=== PATIENT | female | born 1985 | race Caucasian/White ===

== ENCOUNTER → 2020-03-09 14:19 | Outpatient (BNVA) | payer SELFPAY | PROVIDERS: Family Provider General Practice; Visit Provider Obstetrics & Gynecology | DX: Z12.4 Encounter for screening for malignant neoplasm of cervix (principal) | CPT/HCPCS: 88175 ==

== ENCOUNTER → 2023-07-10 14:05 | Outpatient (BNVA) | payer OTHER, SELFPAY | PROVIDERS: Family Provider General Practice; PCP Family Medicine; Visit Provider Family Medicine | DX: N62 Hypertrophy of breast (principal); M54.9 Dorsalgia, unspecified; L73.2 Hidradenitis suppurativa; D64.9 Anemia, unspecified; Z00.00 Encounter for general adult medical examination without abnormal findings | CPT/HCPCS: 80053; 80061; 82728; 83036; 83540; 84443; 85025 ==

== ENCOUNTER 2023-07-24 09:16 | Outpatient (CLI) | payer OTHER, SELFPAY ==
--- NOTE | 2023-07-24 09:30 | MM_ITS ---
WS: [id number] SCREENING DIGITAL BREAST TOMOSYNTHESIS MAMMOGRAM WITH CAD HISTORY: breast cancer screening COMPARISON: None available. Bilateral CC and MLO with tomosynthesis and synthetic mammography submitted. Computer aided detection analyzed. Breast composition: There are scattered areas of fibroglandular density. Lobulated 9 mm mass in the l ateral RIGHT breast at a middle depth near 9-11 o'clock. There is an additional similar ovoid 8 mm ma ss in the upper outer quadrant of the LEFT breast at a middle depth near 10-11 o'clock. Favor these a re both lymph nodes but with no prior studies these need to be further evaluated. No suspicious calci fications. MM/[place] [id number] IMPRESSION: BI-RADS: 0-Incomplete: Need additional imaging evaluation FOLLOW UP: Need Additional Imaging Recommendation: Bilateral breast ultrasound, limited.
== END 2023-07-24 09:17 | disposition home or self-care (01) ==
LOC: RAD 09:16
PROVIDERS: PCP Family Medicine; Visit Provider Family Medicine
DX: Z12.31 Encounter for screening mammogram for malignant neoplasm of breast (principal); R92.323 Mammographic fibroglandular density, bilateral breasts; N63.11 Unspecified lump in the right breast, upper outer quadrant; N63.21 Unspecified lump in the left breast, upper outer quadrant
CPT/HCPCS: 77063; 77067

== ENCOUNTER → 2023-07-26 08:44 | Outpatient (BNVA) | payer OTHER, SELFPAY | PROVIDERS: PCP Family Medicine; Visit Provider Nurse Practitioner Women's Health | DX: N94.9 Unspecified condition associated with female genital organs and menstrual cycle (principal) | CPT/HCPCS: 87529 ==

== ENCOUNTER 2023-07-28 12:07 | Outpatient (CLI) | payer OTHER, SELFPAY ==
--- NOTE | 2023-07-28 12:10 | XR_ITS ---
WS: [id number] XR cervical spine 3V* [id number] REASON FOR EXAM: plastic surgery consult FINDINGS: Straightening of the normal lordosis of the cervical spine. No vertebral body abnormality. Normal odontoid. Mild to moderate narrowing of the C6-C7 disc space with mild endplate sclerosis and vertebral osteoph ytosis. No significant spondylolisthesis. XR/XR cervical spine 3V* [id number] IMPRESSION: Minimal to mild degenerative spondylosis of the cervical spine.
--- NOTE | 2023-07-28 12:10 | XR_ITS ---
WS: [id number] XR thoracic spine 3V* [id number] REASON FOR EXAM: plastic surgery consult FINDINGS: Minimal levoscoliosis of the thoracolumbar junction. No significant kyphosis. No significant vertebral body abnormality. Minimal narrowing of the disc space with mild vertebral osteophytosis. XR/XR thoracic spine 3V* [id number] IMPRESSION: Mild levoscoliosis of the thoracolumbar junction with mild degenerative spondyl osis of the thoracic spine.
== END 2023-07-28 12:08 | disposition home or self-care (01) ==
LOC: RAD 12:09
PROVIDERS: PCP Family Medicine; Visit Provider Family Medicine
DX: M48.02 Spinal stenosis, cervical region (principal); M50.30 Other cervical disc degeneration, unspecified cervical region; M25.78 Osteophyte, vertebrae; N62 Hypertrophy of breast
CPT/HCPCS: 72040; 72072

== ENCOUNTER → 2023-08-21 08:43 | Outpatient (BNVA) | payer OTHER, SELFPAY | PROVIDERS: PCP Family Medicine; Visit Provider Nurse Practitioner Women's Health | DX: N93.9 Abnormal uterine and vaginal bleeding, unspecified (principal); D25.9 Leiomyoma of uterus, unspecified | CPT/HCPCS: 76830 ==

== ENCOUNTER → 2023-08-30 08:43 | Outpatient (BNVA) | payer OTHER, SELFPAY | PROVIDERS: PCP Family Medicine; Visit Provider Nurse Practitioner Women's Health | DX: N92.0 Excessive and frequent menstruation with regular cycle (principal); D25.9 Leiomyoma of uterus, unspecified | CPT/HCPCS: 85025 ==

== ENCOUNTER → 2023-09-03 12:55 | Outpatient (BNVA) | payer OTHER, SELFPAY | PROVIDERS: PCP Family Medicine; Visit Provider Nurse Practitioner | DX: J02.9 Acute pharyngitis, unspecified (principal) | CPT/HCPCS: 87880 ==

== ENCOUNTER 2023-11-16 12:09 | Outpatient (CLI) | payer OTHER, SELFPAY ==
--- NOTE | 2023-11-16 12:20 | US_ITS ---
WS: [id number] ULTRASOUND BILATERAL BREAST HISTORY: abnormal screening mammo COMPARISON: 07/24/2023 TECHNIQUE: 2-D and Doppler. There are scattered areas of fibroglandular density. Ultrasound directed to the upper outer quadrants of each breast. The mammographic abnormality suggest ed these were probably benign lymph nodes. No prior studies for comparison therefore ultrasound was p erformed. No masses and no lymph node is identified. There are no areas of shadowing. There is an ech ogenic focus in the LEFT breast at 12:00 measuring 1.1 x 0.6 x 1.0 cm which may be a fat lobule US/US breast BI limited* [id number] IMPRESSION: BI-RADS: 2 - Benign. FOLLOW-UP: 1 Year Follow-up
== END 2023-11-16 12:10 | disposition home or self-care (01) ==
PROVIDERS: PCP Family Medicine; Visit Provider Family Medicine
DX: R92.8 Other abnormal and inconclusive findings on diagnostic imaging of breast (principal)
CPT/HCPCS: 76642

== ENCOUNTER 2024-01-30 10:01 | Observation (INO) | payer OTHER, SELFPAY ==
--- NOTE | 2024-01-22 10:59 | ANES.PREANE2 ---
Pre-Anesthetic Assessment Height/Weight: Height 5 ft 4 in Preop Diagnosis: Dysmenorrhea Operation Date: 01/30/24 13:40 Proposed Procedures p Total Vaginal Hysterectomy 58031, 53106, 77871, D25.9, N92.0, R10.2, N81.10, N39.46(Not Applicable) - Elías Garcia MD s Anterior Repair Anterior Colporrhaphy(Not Applicable) - Elías Garcia MD s Sling Single Incision Midurethral Sling(Not Applicable) - Elías Garcia MD Was Beta Noelle taken within 24 hours: N/A Was Clonidine taken within 24 hours: N/A Social No alcohol and No tobacco Exam alert, oriented x 3, clear to auscultation bilaterally and regular rate & rhythm Airway Submandibular: within normal limits Cervical ROM: within normal limits Mallampati: Class II Dentition: full Anesthetic Plan ASA status: 2 Anesthesia: General Other: No prior issues with anesthesia Plan to be n.p.o. midnight before surgery Patient denies any cardiac or pulmonary issues Patient does admit to having a cough for the last 4 days, educated her on being seen prior to surgery if symptoms get any worse. METs greater than 4 Plan for GETA Medications/Allergies Home Medications Medication Instructions Recorded Confirmed Last Taken Type cetirizine 10 mg capsule (Zyrtec) 10 mg PO BID allergies 07/20/22 01/22/24 01/22/24 History levonorgestrel 0.15 mg-ethinyl 1 tab PO DAILY #84 tabs 07/26/23 01/22/24 01/22/24 Rx estradiol 0.03 mg tablet (Levora-28) hydroxyzine HCl 10 mg tablet 10 mg PO DAILY #90 tabs 10/24/23 01/22/24 Unknown Rx oxybutynin chloride 5 mg tablet 5 mg PO DAILY #30 tabs 10/24/23 01/22/24 01/22/24 Rx fluticasone propionate 50 1 spray intranasal DAILY 01/22/24 01/22/24 01/22/24 History mcg/actuation nasal spray,suspension Allergies Allergy/AdvReac Type Severity Reaction Status Date / Time Penicillins Allergy Intermediate swelling--Can Verified 01/22/24 08:23 take Keflex [facility] Anesthesia Medical History Hives of unknown origin (~2021) managed with meds--- [facility] Surgical History (Updated 01/22/24 @ 10:33 by Dona Restrepo RN) S/P wisdom tooth extraction in 2014 S/P laparoscopy 2000 - done in [place], [place] for ruptured ovarian cyst per patient Family History Mother Diabetes Hypertension Thyroid disease Hyperlipidemia Father Hypertension Skin cancer Denies family history of Colon cancer Ovarian cancer Heart disease Breast cancer Uterine cancer Stroke Social History Smoking and tobacco/nicotine status: never used tobacco/nicotine Data Anesthesia Cardiac Studies: No Data to Display
[2024-01-30] VITALS (22 sets, daily range): BP systolic 99–142; BP diastolic 48–92; PULSE 80–112; RESP 12–26; TEMP 36.6–37.4; O2SAT 93–100; BMI 37.2
[2024-01-30 06:08] LABS: OR HCG Qualitative Urine Negative (Negative)
--- NOTE | 2024-01-30 06:17 | P.ANESUD_ITS ---
Pre-Anesthetic Update Pre-Anesthetic Assessment: Date of Surgery/Procedure: 01/30/24 Preop Fransisca gnosis: Abnormal uterine bleeding, uterine fibroid, cystocele, urinary incontinence Proposed Procedure: Operation Date: 01/30/24 07:00 Proposed Procedures p Total Vaginal Hysterectomy 12030, 30468, 44348, D25.9, N92.0, R10.2, N81.10, N39.46(Not Applicable) - Elías Garcia MD s Anterior Repair Anterior Colporrhaphy(Not Applicable) - Elías Garcia MD s Sling Single Incision Midurethral Sling(Not Applicable) - Elías Garcia MD Changes from Pre-Anesthetic Assessment: Patient states that she is feeling well today, coughing has improved. NPO since yesterday Plan for general anesthesia Last Intake: Intake Last Liquid Date 01/29/24 Last Liquid Time 22:00 Last Solid Date 01/29/24 Last Solid Time 19:00 Vitals: Temperature 99.3 F 01/30/24 06:02 Temperature Source Temporal Artery S can 01/30/24 06:02 Pulse Rate 101 H 01/30/24 06:02 Respiratory Rate 16 01/30/24 06:02 Blood Pressure 142/91 01/30/24 06:02 Blood Pressure Niya n 108 01/30/24 06:02 Pulse Oximetry 96 01/30/24 06:02 Oxygen Delivery Me thod Room Air 01/30/24 06:02 Cardiac Studies: No Data to Display
[2024-01-30] MEDS: sodium chloride 0.9% 1,000 ML 30 ML IV (06:43)
[2024-01-30] MEDS: VANCOMYCIN ADD-Vantage 1,000 MG in 0.9% NaCl ADD-Vantage 250 ML 250 MG IV (06:44)
--- NOTE | 2024-01-30 06:53 | W.PM.OPSUD ---
Surgery/Procedure H&P Update DATE OF PROCEDURE: January 30, 2024 DATE H&P PERFORMED: 01/22/24 H&P UPDATE INFORMATION: I have reviewed H&P completed within last 30 days, I have examined patient prior to procedure and No changes to prior documentation PREOP DIAGNOSIS: Abnormal uterine bleeding, uterine fibroid, cystocele, urinary incontinence PLANNED PROCEDURE: Operation Date: 01/30/24 07:00 Proposed Procedures p Total Vaginal Hysterectomy 11561, 84666, 88766, D25.9, N92.0, R10.2, N81.10, N39.46(Not Applicable) - Elías Garcia MD s Anterior Repair Anterior Colporrhaphy(Not Applicable) - Elías Garcia MD s Sling Single Incision Midurethral Sling(Not Applicable) - Elías Garcia MD
[2024-01-30 06:57] LABS: Basophils # 0.1 10^3/uL (0.0-0.1); Basophils % 0.6 %; Eosinophils # 0.3 10^3/uL (0.0-0.8); Eosinophils % 3.4 %; Hematocrit 39.2 % (36-47); Lymphocytes # 2.7 10^3/uL (0.8-4.8); Lymphocytes % 31.1 %; Mean Corpuscular HGB Conc 32.4 g/dL (30-55); Mean Corpuscular Hemoglobin 26.1 pg (27-33); Mean Corpuscular Volume 80.5 fl (85-98); Mean Platelet Volume 9.2 fL (7.4-10.4); Monocytes # 0.6 10^3/uL (0.2-0.9); Monocytes % 7.4 %; Neutrophils # 4.91 10^3/uL (1.8-7.7); Neutrophils % 56.8 %; Nucleated Red Blood Cells % 0 %; Platelet Count 260 10^3/cmm (157-399); Red Blood Count 4.87 10^6/uL (3.85-5.65); Red Cell Distribution Width 13.9 % (12.1-15.1); White Blood Count 8.64 10^3/uL (3.29-11.43)
[2024-01-30] MEDS: metroNIDAZOLE IV 500 MG/100 ML PREMIX 100 MG IV (07:00)
[2024-01-30 07:10] LABS: Alanine Aminotransferase 15 U/L (0-33); Albumin Level 3.9 g/dL (3.5-5.2); Alkaline Phosphatase 57 U/L (35-105); Aspartate Amino Transferase 16 U/L (0-32); Blood Urea Nitrogen 12 mg/dL (6-20); Calcium 9.2 mg/dL (8.5-10.5); Carbon Dioxide 21 mmol/L (22-29); Chloride 105 mmol/L (98-107); Creatinine Clr Calc Pharmacy 136.8295; Globulin 3.1 g/dL (1.3-4.6); Glomerular Filtration Rate 110.7 mL/min (90-130); Glucose 99 mg/dL (65-115); Osmolality Calculated 286 mOsm/kg (285-295); Sodium 138 mmol/L (136-145); Total Bilirubin 0.3 mg/dL (0.15-1.2)
[2024-01-30] MEDS: lidocaine-epi 2% PF 1:200,000 20 mL SDV INJECTION (07:46)
--- NOTE | 2024-01-30 09:29 | P.BOP_ITS ---
Date of Procedure: 01/30/24 Surgeon: Elías Garcia MD Fiberglass Fabricator(s): Procedure(s) performed: Total vaginal hysterectomy, anterior colporrhaphy augmented with allograft, mid urethral sling Findings of the procedure(s): Enlarged irregular fibroid uterus, cystocele Estimated blood loss: 250 Specimen(s) removed: Uterus Post-operative diagnosis: Status post TVH, anterior colporrhaphy, mid urethral sling
--- NOTE | 2024-01-30 09:31 | P.OP_ITS ---
Operative Report Date of procedure: January 30, 2024 Pre-op diagnosis: Abnormal uterine bleeding Pelvic pain Fibroid uterus Cystocele Mixed urinary incontinence Post-op diagnosis: same Post-op findings: Enlarged irregular shaped uterus Procedure done: Total vaginal hysterectomy Anterior colporrhaphy augmented with allograft Mid urethral sling Cystoscopy Implants: Coloplast Altis sling Coloplast dermis allograft Specimens removed/disposition: Uterus Pathology: Fibroid uterus Surgeon: Elías Garcia MD Estimated blood loss (mL): 250 IV fluids (mL): 1,000 Urine output (mL): 200 Complications: None Findings: Enlarged irregular fibroid uterus Procedure: After informed consent and risks, benefits, indications and alternatives reviewed with the patient was taken to the operating room. The patient was placed in dorsal lithotomy position prepped, and draped in the usual sterile fashion. The pre-procedure timeout verifying the correct patient, procedure, site and side, could not requirements was performed and acknowledge by the OR team. A Patterson catheter was placed. A Bookwalter vaginal retractor was placed into the vagina in usual manner visualize the cervix. Cervix was grasped with a single tooth tenaculum and circumferentially infiltrated with 2% lidocaine with epinephrine. Then cervix was circumferentially incised with bovie and the bladder was dissected off the pubovesical cervical fascia anteriorly with a sponge stick and Metzenbaum scissors. The anterior peritoneal reflection was identified and the anterior cul-de-sac was entered sharply with Metzenbaum scissors. The same procedure was performed posteriorly and a posterior colpotomy was made through the posterior cul-de-sac space without difficulty and the posterior blade of the Bookwalter vaginal retractor was advanced posteriorly into the cul-de-sac. At this time, the left and right uterosacral ligaments were isolated and ligated with 0 Vicryl. The LigaSure device was placed over the uterosacral ligaments on either side and was then used in a serial fashion up through the cardinal ligaments bilaterally cross-clamped, cut, and sealed with the LigaSure device. Finally, the uterine arteries were cross-clamped, cut, sealed and ligated with the LigaSure device. Hemostasis was assured. The broad ligaments were then serially clamped, sealed and cut with the LigaSure device on both sides. Excellent hemostasis was visualized. Both cornua were clamped, sealed and cut with the LigaSure device. Then the pedicles were then suture ligated with excellent hemostasis. The uterus was excised and submitted for pathologic evaluation. No other abnormalities were noted in the pelvic cavity. The peritoneum was then closed in a pursestring fashion with 0 Vicryl suture. The vaginal cuff angles were closed with [id number] #0 Vicryl suture on both sides and transfixed with the ipsilateral cardinal and uterosacral ligaments. The remainder of the vaginal cuff was closed with #0 Vicryl in a running locked fashion. Then proceeded to perform the mid urethral sling and anterior colporrhaphy. The anterior vaginal mucosa beneath the midurethra was infiltrated with 2% lidocaine with epinephrine. A vertical midline incision was made beneath the midurethra, nearly 1.5 cm length. Careful submucosal dissection was performed bilaterally up to the interior portion of the inferior pubic ramus. The insertion of adductor longus tendon on the patient?s pubic ramus was identified as reference land paulie. Palpated the notch along the internal edge of isc hiopubic ramus where the adductor longus tendon and the inferior pubic ramus meet. The Altis single incision sling (SIS) was selected. Then the needle of the SIS inserted aiming at the location of this notch. One of the integrated self- fixating tips place onto the needle by sliding it over the end of the needle. The needle/sling assembly was inserted toward the location of identified reference notch making sure that the flat of the handle is perpendicular to the desired path. The needle was tracked along the posterior surface of the ischiopubic ramus until the midline paulie on the mesh is approximately at the midline position under the urethra. The needle was removed and the same was repeated on the contralateral side until the appropriate sling tension under the urethra was achieved ensuring that the mesh lays flat. The needle was removed and vaginal incision was closed in a running interlocking fashion with 2-0 Vicryl. Then the vaginal mucosa was then injected in the midline with 2% lidocaine with epinephrine. The vaginal mucosa was scored in the midline with the Bovie approximately 1 cm medial to the urethral meatus to 1 cm distal to the vaginal cuff. This vaginal mucosa was then undermined and then incised in the midline with the Metzenbaum scissors. The lateral aspects of the vaginal mucosa were then grasped with the Allis clamps and the vaginal mucosa was then dissected off the underlying fascia with the Metzenbaum scissors. Again, there was noted to be quite a bit of oozing at the incision, which was controlled with cautery. After adequate dissection was performed, bilaterally. A coloplast Dermis allograft was modified at time of application to fit spacea, 3 x 3 cm piece. The Coloplast allograft was placed in front of cystocele ready to be implanted facing the vagina mucosa. Suture is placed at distal end of graft and placed towards vaginal cuff. Final suture is placed on proximal portion of the graft to complete the placement overlying the bladder. Then Interrupted vertical mattress sutures of 0 Vicryl were used to elevate the cystocele superiorly. Bludigo was given IV. The excessive vaginal mucosa was then trimmed with the Metzenbaum scissors and the vaginal mucosa was then reapproximated in the running interlocking fashion with 2-0 Vicryl. At this time, instruments were removed from the vagina at hemostasis assured. Then the Patterson catheter was removed and cystoscope was inserted. The bladder was filled with sterile water. Complete evaluation of the bladder mucosa was performed noting no lacerations, dimpling, tears, bleeding of the mucosa or muscular layers. Both ureteral orifices were identified. Prompt excretion of blue urine from both ureteral orifices was noted. Cystoscope was withdrawn. Patterson catheter was then placed yielding clear blue urine. A vaginal packing with Premarin cream was placed and the patient was taken out of dorsal lithotomy position and awakened from the general anesthesia. The patient tolerated the pr ocedure well and was taken to the PACU recovery room in a stable condition. Sponge, lap, needle and instruments counts were correct x3.
[2024-01-30] MEDS: fentaNYL 50 mcg/mL INJ 2mL IVP (10:06)
--- NOTE | 2024-01-30 10:09 | SUR.PHASEI ---
09:35 RECEIVED PT FROM OR STAFF. SPONTANEOUS RESPIRATIONS. OPENS EYES TO VERBAL. 09:40 ORAL AIRWAY DC'ED. AIRWAY PATENT .VENTILATING WELL. JACOBSON PATENT. NSR ON MONITOR. NO ACTIVE BLEEDING NOTED. 10:08 MEDICATED FOR MILD LOWER ABDOMEN PAIN. DENIES NAUSEA. A+O X3. 10:15 ICE CHIPS GIVEN. RELIEF OF PAIN.
--- NOTE | 2024-01-30 10:33 | ANE.PACU2 ---
Inpatient post-anesthesia follow up: Airway intact: Yes Vital signs: Temperature 98.3 F Pulse Rate 92 Respiratory Rate 16 Blood Pressure 120/73 Pulse Oximetry 98 Oxygen Delivery Me thod Room Air Oxygen Flow Rate 2 Fraction of Inspir ed Oxygen Hydration adequate: Yes Nausea and vomiting: No Pain level: 2 Mental status: Baseline
[2024-01-30] MEDS: dextrose 5%-lactated ringers 1,000 ML 125 ML IV (12:28)
[2024-01-30] MEDS: ketorolac 30 mg/mL INJ IVP ×3 (12:28→23:53)
[2024-01-30] MEDS: HYDROcodone-acetaminophen 5-325 mg Tablet PO (14:48)
[2024-01-30] MEDS: docusate sodium 100 mg Capsule PO (17:43)
[2024-01-30] MEDS: cetirizine 10 mg Tablet PO (17:43)
[2024-01-30] MEDS: simethicone 80 mg Chew PO (20:40)
[2024-01-31] MEDS: sodium chloride 0.9% 500 ML IV (01:11)
[2024-01-31] MEDS: dextrose 5%-lactated ringers 1,000 ML 125 ML IV (01:50)
[2024-01-31 04:00] VITALS: BP 118/73; PULSE 80; RESP 18; TEMP 36.7; O2SAT 95
--- NOTE | 2024-01-31 04:42 | PC.NURSE ---
Vaginal packing removed. Patient tolerated the procedure. Scant bleeding noted.
[2024-01-31 04:47] LABS: Hematocrit 33.8 % (36-47); Mean Corpuscular HGB Conc 32.2 g/dL (30-55); Mean Corpuscular Hemoglobin 26.3 pg (27-33); Mean Corpuscular Volume 81.4 fl (85-98); Mean Platelet Volume 9.1 fL (7.4-10.4); Platelet Count 225 10^3/cmm (157-399); Red Blood Count 4.15 10^6/uL (3.85-5.65); Red Cell Distribution Width 13.9 % (12.1-15.1); White Blood Count 12.18 10^3/uL (3.29-11.43)
[2024-01-31] MEDS: ketorolac 30 mg/mL INJ IVP (05:23)
[2024-01-31] MEDS: cetirizine 10 mg Tablet PO (08:49)
[2024-01-31] MEDS: docusate sodium 100 mg Capsule PO (08:49)
[2024-01-31 10:00] VITALS: BP 106/66; PULSE 80; RESP 18; TEMP 36.8; O2SAT 96
--- NOTE | 2024-01-31 10:06 | PC.NURSE ---
PVR 92
[2024-01-31] MEDS: ibuprofen 800 mg tablet PO (12:49)
--- NOTE | 2024-01-31 14:01 | PM.OBGYDC ---
Discharge Providers ECHO VASCULAR TECH Date of Admission: 01/30/24 10:01 Date of Discharge: 01/31/24 Attending Provider at Admission: Elías Garcia MD Attending Provider at Discharge: Elías Garcia MD Primary Care Provider: Joanne Alvarez MD Reason for Visit Reason for Visit: R10.2 Hospital Course Hospital Course Mrs. Schneider 38-year-old female with history of abnormal uterine bleeding unresponsive to medical management, fibroid uterus, cystocele, and urinary incontinence. She was admitted for planned total vaginal hysterectomy with anterior colporrhaphy and mid urethral sling. The procedures were performed without complication. Overnight observation was uneventful. Tolerating diet well. Ambulating without difficulty. Pain well under control. She is afebrile hemodynamically stable postoperative day 1. She was counseled regarding pelvic rest for 6 weeks (no sex, no tampons, no vaginal douches). Return to the emergency room if any fever, increased bleeding or pain. Will also advised against heavy lifting with the limitation of 10 pounds. Physical Exam Narrative: GA: Alert and oriented ?3. HEENT: WNL. Heart: Regular rate and rhythm. Lungs: Clear to auscultation bilaterally. Abdomen: Bowel sounds present, nontender. PHYSICIAN RECRUITER: spotting bleeding. Extremities: No edema, no cyanosis, no calves pain. Urinary Catheter Management: Patterson: Cath Placed During This Visit: yes, but has since been removed by the nurse Reason for Continuing Indwelling Catheter: Decision to DC Catheter Urinary Catheter Date of Insertion: 01/30/24 Urinary Catheter Time of Insertion: 07:30 Date Urinary Catheter Removed: 01/31/24 Time Urinary Catheter Discontinued: 04:42 History History History 3 Term 3 0 Miscarriages/Ectopic 0 Living Children 3 Discharge Data Studies Completed and Pending Pending at discharge Category Date Time Status Pathology: Surgical [PTH] Routine Pth 01/30/24 08:23 Received Laboratory Results WBC 12.18 10^3/uL (3.29-11.43) H 01/31/24 04:40 RBC 4.15 10^6/uL (3.85-5.65) 01/31/24 04:40 Hgb 10.90 g/dL (11.27-16.99) L 01/31/24 04:40 Hct 33.8 % (36-47) L 01/31/24 04:40 MCV 81.4 fl (85-98) L 01/31/24 04:40 MCH 26.3 pg (27-33) L 01/31/24 04:40 MCHC 32.2 g/dL (30-55) 01/31/24 04:40 RDW 13.9 % (12.1-15.1) 01/31/24 04:40 Plt Count 225 10^3/cmm (157-399) 01/31/24 04:40 MPV 9.1 fL (7.4-10.4) 01/31/24 04:40 Neut % (Auto) 56.8 % 01/30/24 06:30 Lymph % (Auto) 31.1 % 01/30/24 06:30 [place] % (Auto) 7.4 % 01/30/24 06:30 Eos % (Auto) 3.4 % 01/30/24 06:30 Baso % (Auto) 0.6 % 01/30/24 06:30 Neut # (Auto) 4.91 10^3/uL (1.8-7.7) 01/30/24 06:30 Lymph # (Auto) 2.7 10^3/uL (0.8-4.8) 01/30/24 06:30 [place] # (Auto) 0.6 10^3/uL (0.2-0.9) 01/30/24 06:30 Eos # (Auto) 0.3 10^3/uL (0.0-0.8) 01/30/24 06:30 Baso # (Auto) 0.1 10^3/uL (0.0-0.1) 01/30/24 06:30 Nucleated RBC % (auto) 0 % 01/30/24 06:30 Nucleated RBCs # 0.0 /100WBC 01/30/24 06:30 Sodium 138 mmol/L (136-145) 01/30/24 06:30 Potassium 4.0 mmol/L (3.5-5.1) 01/30/24 06:30 Chloride 105 mmol/L (98-107) 01/30/24 06:30 Carbon Dioxide 21 mmol/L (22-29) L 01/30/24 06:30 Anion Gap 16.0 (5-19) 01/30/24 06:30 BUN 12 mg/dL (6-20) 01/30/24 06:30 Creatinine 0.6 mg/dL (0.5-0.9) 01/30/24 06:30 GFR Calculation 110.7 mL/min (90-130) 01/30/24 06:30 Glucose 99 mg/dL (65-115) 01/30/24 06:30 Calculated Osmolality 286 mOsm/kg (285-295) 01/30/24 06:30 Calcium 9.2 mg/dL (8.5-10.5) 01/30/24 06:30 Total Bilirubin 0.3 mg/dL (0.15-1.2) 01/30/24 06:30 AST 16 U/L (0-32) 01/30/24 06:30 ALT 15 U/L (0-33) 01/30/24 06:30 Alkaline Phosphatase 57 U/L (35-105) 01/30/24 06:30 Total Protein 7.0 g/dL (6.6-8.7) 01/30/24 06:30 Albumin 3.9 g/dL (3.5-5.2) 01/30/24 06:30 Globulin 3.1 g/dL (1.3-4.6) 01/30/24 06:30 Urine HCG, Qual Negative (Negative) 01/30/24 05:54 Blood Type A Positive 01/30/24 06:30 Rho(D) Type Rh positive 01/30/24 06:30 Antibody Screen Negative 01/30/24 06:30 Vitals Last Vital Signs Temp 98.2 F 01/31/24 10:00 Pulse 80 01/31/24 10:00 Resp 18 01/31/24 10:00 BP 106/66 01/31/24 10:00 Pulse Ox 96 01/31/24 10:00 O2 Del Method Room Air 01/31/24 10:00 O2 Flow Rate 2 01/30/24 10:25 Results Labs OB ([facility]): Blood Type A Positive 01/30/24 Antibody Screen Negative 01/30/24 Hct 33.8 % (36-47) L 01/31/24 Hgb 10.90 g/dL (11.27-16.99) L 01/31/24 Rho(D) Type Rh positive 01/30/24 Plt Count 225 10^3/cmm (157-399) 01/31/24 TSH 0.80 uIU/mL (0.27-4.20) 07/10/23 Hemoglobin A1c 5.0 % (4.0-6.0) 07/10/23 Discharge Plan Discharge Patient Disposition: Home Condition: Stable Prescriptions: New hydrocodone-acetaminophen 5-325 mg tablet 1 tab PO Q4H PRN (Reason: pain) Qty: 30 0RF acetaminophen 325 mg capsule 325 mg PO Q4H PRN (Reason: fever or pain) Qty: 60 0RF docusate sodium [Colace] 100 mg capsule 100 mg PO BID Qty: 30 0RF ibuprofen 800 mg tablet 800 mg PO TID PRN (Reason: pain) Qty: 60 0RF oxybutynin chloride 5 mg tablet extended release 24hr 5 mg PO DAILY Qty: 60 0RF Continued Zyrtec 10 mg capsule 10 mg PO BID levonorgestrel-ethinyl estrad [Levora-28] 0.15-0.03 mg tablet 1 tab PO DAILY Qty: 84 3RF oxybutynin chloride 5 mg tablet 5 mg PO DAILY Qty: 30 0RF hydroxyzine HCl 10 mg tablet 10 mg PO DAILY Qty: 90 0RF fluticasone propionate [Flonase] 50 mcg/actuation Gamaliel,Suspension 1 spray INTRANASAL DAILY Rx Instructions: administer into each nostril Discharge Orders: Discharge Order (Routine); Ordered 01/31/24 Ordered By: Elías Garcia Referrals: Elías Garcia MD [Physician] - 03/11/24 2:45 pm Abbey Cedeño APN, WHNP [Nurse Practitioner] - 02/28/24 8:30 am () Discharge Diet: Usual diet Discharge Activity: Limit activity as instructed Patient Instructions: Urinary Bladder Suspension (DC), Acute Wound Care (DC), Opioid Safety (DC), Bladder Sling for Women (GEN), Vaginal Hysterectomy (DC), Anterior Vaginal Repair (DC), Anterior Vaginal Repair (GEN), OB Discharge Report, OB Food/Drug Interaction Guide, Post Anesthesia Care Activity Restrictions/Additional Instructions: 1. Please call [facility] on next working day to make your [post-operative] appointment in [2] weeks. 2. Please stay home until you come back to the clinic on first post-hospatilization check up. 3. Please follow instructions on your medications CAREFULLY. 4. If you have abdominal incision, do not cover it unless dressing is necessary because of drainage. OK to shower, but avoid bath. Leave steri-strips until they fall off. If they are still on one week after surgery, you may remove them. 5. If you had vaginal surgery or vaginal repair, Dr. Garcia may instruct you to take SITZ bath. 6. Yellow, blood tinged odorous vaginal discharge is usually normal after hysterectomy or vaginal surgeries. 7. No SEXUAL INTERCOURSE, tampons, or douches until you are completely released from the post-operative care. 8. Avoid constipation by eating right and maybe using some Metamucil or Milk of Magnesia. 9. All prescription refills are given during the working hours. Please do no wait till it runs out. Call the clinic at [phone] before your medication runs out. The clinic will get in touch with your doctor to prescribe medications if necessary. 10. Please remain within 40 mile radius from our hospital because emergencies do happen now and then during the post-operative period. 11. If you have stairs at home, take one step at a time slowly and minimize the number of trips. It helps to stay in one floor for the next few days. No lifting except what you can lift by one hand until you are released from the post-operative care. 12. Driving is discouraged until you are well healed. It may be 3-4 weeks before you feel strong enough to drive. You should be able to turn and look through the rear window without pain and you should be able to push the brake pedal very hard without pain before you drive. No fast rules, but SAFETY should be your primary concern. DO NOT drive if you are on sedating medications such as narcotics. 13. Call the clinic (during working hours) to make urgent appointment or go to the Emergency room, if any of the following occurs: i. Vaginal bleeding becomes heavy, more than a period. ii. Incision becomes red and sore, or drains pus. iii. Your TEMPERATURE is over 100.4F or you have chill. iv. IV site becomes red and swollen (a little ``knot?? is usually OK) v. Persistent nausea and vomiting vi. Persistent constipation or diarrhea vii. Rash or allergic reaction to medications. Discharge Attestations ECHO VASCULAR TECH Time Spent in Discharge Care*: greater than 30 min Specific Discharge Activities: Specific discharge activities: educating and/or supporting family/caregiver Coding Level of Care Code Acute Code for Chg Fwtawanda
[2024-01-31 15:24] VITALS: BP 120/73; PULSE 92; RESP 16; TEMP 36.8; O2SAT 98
== END 2024-01-31 15:26 | disposition home or self-care (01) ==
LOC: OBGYN 10:05
PROVIDERS: Admitting Provider Obstetrics & Gynecology; PCP Family Medicine; Visit Provider Obstetrics & Gynecology
PROC: (CPT 57240; principal; 2024-01-30 07:00)
PROC: 0JQC0ZZ Repair Pelvic Region Subcutaneous Tissue and Fascia, Open Approach (ICD-10-PCS; CPT 57240; 2024-01-30 07:00)
PROC: (CPT 57288; 2024-01-30 07:00)
DX: N93.9 Abnormal uterine and vaginal bleeding, unspecified (principal); D25.9 Leiomyoma of uterus, unspecified; N81.10 Cystocele, unspecified; N39.46 Mixed incontinence; N72 Inflammatory disease of cervix uteri
CPT/HCPCS: 57240; 57288; 58290; 36415; 51702; 80053; 81025; 85025; 85027; 86850; 86900; 88307; C1713; C1762; G0378; J1100; J1171; J1885; J2250; J2405; J2704; J2710; J3010; J3370; J3490; J7030; J7040; J7050; J7121

== ENCOUNTER → 2024-10-08 15:03 | Outpatient (BNVA) | payer BC, SELFPAY | PROVIDERS: PCP Family Medicine; Visit Provider Family Medicine | DX: Z00.00 Encounter for general adult medical examination without abnormal findings (principal); D64.9 Anemia, unspecified; L50.9 Urticaria, unspecified; T81.30XA Disruption of wound, unspecified, initial encounter; X58.XXXA Exposure to other specified factors, initial encounter | CPT/HCPCS: 80053; 83036; 84443; 85025; 85651; 86003; 86008; 86140 ==

== ENCOUNTER → 2024-10-09 13:48 | Outpatient (BNVA) | payer BC, SELFPAY | PROVIDERS: PCP Family Medicine; Visit Provider Family Medicine | DX: L50.9 Urticaria, unspecified (principal); R20.0 Anesthesia of skin; R20.2 Paresthesia of skin; T81.30XA Disruption of wound, unspecified, initial encounter; X58.XXXA Exposure to other specified factors, initial encounter; Z48.816 Encounter for surgical aftercare following surgery on the genitourinary system | CPT/HCPCS: 86038 ==